=== PATIENT | male | born 1980 | race African-American/Black ===

== ENCOUNTER 2016-08-23 11:39 | Emergency (ER) | payer OTHER ==
[~2016-08-23] VITALS: Ht 180.3 cm; Wt 99.8 kg
[~2016-08-23 11:39] MED LIST: IBUPROFEN 800800 MG PO; NOHOMEMEDICATIONS; PROMETHAZINE-C120 ML PO; ZPAK PO
[2016-08-23 11:41] VITALS: BP 137/96
[2016-08-23] MEDS ORDERED: IBUPROFEN 600600 M1 PO (12:48)
[2016-08-23] MEDS ORDERED: CYCLOBENZAPRINE5 MG PO (13:03)
== END 2016-08-23 13:03 | disposition home or self-care (01) ==
LOC: ER 11:39
DX: M25.512 Pain in left shoulder (principal); R51 Headache; F10.99 Alcohol use, unspecified with unspecified alcohol-induced disorder; V59.50XA Passenger in pick-up truck or van injured in collision with unspecified motor vehicles in traffic accident, initial encounter; Y93.89 Activity, other specified; Y92.89 Other specified places as the place of occurrence of the external cause; Y99.8 Other external cause status